=== PATIENT | female | born 1955 | race Caucasian/White ===

== ENCOUNTER 2017-02-10 11:53 | Emergency (ER) | payer OTHER ==
[~2017-02-10] VITALS: Ht 167.6 cm; Wt 85.2 kg
[~2017-02-10 11:53] MED LIST: CRANBERRY400 MG PO; GRALISE300 MG PO; K-DUR20 MEQ PO; MAGNESIUM OXID200 MG PO; SYNTHROID100 MCG PO; VALIUM5 MG PO; VITAMIN B-6250 MG PO
[2017-02-10 12:59] LABS: EOSINOPHIL (%) 2.1 % (0-5); EOSINOPHIL COUNT 0.2 K/uL (0-0.3); HEMATOCRIT 45.9 % (36.0-46.0); IMMATURE GRANULOCYTE (%) 0.4 % (0.0-0.7); LYMPHOCYTE COUNT 2.4 K/uL (1.0-2.8); MCH 30.8 PG (29.0-34.0); MCHC 32.9 G/DL (30.0-36.0); MCV 93.5 FL (83-99); MEAN PLAT.VOLUME 11.4 uM^3 (9.5-12.4); MONOCYTE (%) 8.3 % (3-12); MONOCYTE COUNT 0.6 K/uL (0-0.8); NEUTROPHIL (%) 55.1 % (45-76); PLATELET COUNT 213 K/uL (156-360); RBC DIS.WIDTH-SD 41.6 % (39-53); RED BLOOD COUNT 4.91 M/uL (3.80-5.20); WHITE BLOOD COUNT 7.2 K/uL (4.1-10.2)
[2017-02-10 13:15] LABS: CHLORIDE 107 mEq/L (99-109); POTASSIUM 4.1 mEq/L (3.7-5.4); SODIUM 140 mEq/L (136-147)
[2017-02-10 13:16] LABS: GLUCOSE 119 mg/dL (70-99)
[2017-02-10 13:18] LABS: ANION GAP 8 MEQ/L (2-14)
[2017-02-10 13:20] LABS: GFR ESTIMATE (CALCULATED) 53 mL/min/
[2017-02-10 13:21] LABS: UREA NITROGEN (BUN) 20 mg/dL (9-23)
[2017-02-10] MEDS ORDERED: ATARAX,VISTARIL25 MG PO (15:39)
[2017-02-10 15:56] VITALS: BP 131/68
== END 2017-02-10 15:57 | disposition home or self-care (01) ==
LOC: EME 11:53 → RME 11:53
PROVIDERS: Emergency Medicine
DX: R51 Headache (principal); E03.9 Hypothyroidism, unspecified
CPT/HCPCS: 70450; 80048; 84443; 85025; 87493; 93005; 99281; 99284

== ENCOUNTER 2017-02-15 23:29 | Emergency (ER) | payer OTHER ==
[~2017-02-15] VITALS: Ht 167.6 cm; Wt 81.8 kg
[~2017-02-15 23:29] MED LIST changes: +ATARAX,VISTARIL25 MG PO
[2017-02-16 01:14] LABS: HEMATOCRIT 45.8 % (36.0-46.0); MCH 31.1 PG (29.0-34.0); MCHC 33.4 G/DL (30.0-36.0); MCV 93.1 FL (83-99); MEAN PLAT.VOLUME 11.1 uM^3 (9.5-12.4); PLATELET COUNT 234 K/uL (156-360); RBC DIS.WIDTH-CV 12.2 % (11.8-14.6); RBC DIS.WIDTH-SD 42.1 % (39-53); RED BLOOD COUNT 4.92 M/uL (3.80-5.20); WHITE BLOOD COUNT 7.6 K/uL (4.1-10.2)
[2017-02-16 01:31] LABS: CHLORIDE 104 mEq/L (99-109); POTASSIUM 3.8 mEq/L (3.7-5.4)
[2017-02-16 01:32] LABS: SODIUM 139 mEq/L (136-147)
[2017-02-16 01:33] LABS: GLUCOSE 107 mg/dL (70-99)
[2017-02-16 01:35] LABS: ANION GAP 11 MEQ/L (2-14)
[2017-02-16 01:37] LABS: GFR ESTIMATE (CALCULATED) 48 mL/min/
[2017-02-16 01:38] LABS: UREA NITROGEN (BUN) 25 mg/dL (9-23)
[2017-02-16] MEDS ORDERED: MEDROL DOSEPAK4 MG PO (02:10)
[2017-02-16 02:56] VITALS: BP 131/70
[2017-02-16 03:03] LABS: ERTH.SED.RATE 27 MM/HR (0-30)
== END 2017-02-16 02:59 | disposition home or self-care (01) ==
LOC: EME 23:29 → EXP 23:29
PROVIDERS: Emergency Medicine
DX: M79.89 Other specified soft tissue disorders (principal); M25.472 Effusion, left ankle; M25.461 Effusion, right knee; M25.462 Effusion, left knee; E03.9 Hypothyroidism, unspecified
CPT/HCPCS: 73610; 80048; 83605; 85027; 85651; 87040; 99281; 99284; J1650; J7512

== ENCOUNTER 2017-02-16 09:04 | Emergency (ER) | payer OTHER ==
[~2017-02-16] VITALS: Ht 167.6 cm; Wt 84.3 kg
[~2017-02-16 09:04] MED LIST changes: +MEDROL DOSEPAK4 MG PO
[2017-02-16 11:05] VITALS: BP 112/72
== END 2017-02-16 11:06 | disposition home or self-care (01) ==
LOC: EME 09:04
DX: R60.0 Localized edema (principal); E78.5 Hyperlipidemia, unspecified; I10 Essential (primary) hypertension; K21.9 Gastro-esophageal reflux disease without esophagitis; E03.9 Hypothyroidism, unspecified
CPT/HCPCS: 93971; 99281; 99284

== ENCOUNTER → 2017-04-04 | Outpatient (CLI) | payer OTHER ==
[~2017-04-04] VITALS: Ht 167.6 cm; Wt 84.4 kg
[~2017-04-04] MED LIST changes: +FISH OIL300 MG PO; +GLUCOSAMINE &1 EAC1 PO; +IRON160 M1 PO; +MAGNESIUM 300300 MG PO; +NEXIUM40 MG PO; +PROBIOTIC1 EAC1 PO; +STRESS B-COMPL1 EACH PO; +SYNTHROID75 MCG PO; +VITAMIN D32000 UNI1 PO; +ZYRTEC10 M2 PO
== END | disposition home or self-care (01) ==
LOC: AMB 12:00
PROC: 0DBL8ZX Excision of Transverse Colon, Via Natural or Artificial Opening Endoscopic, Diagnostic (ICD-10-PCS; principal; 2017-04-04)
DX: K63.5 Polyp of colon (principal); R10.32 Left lower quadrant pain; I12.9 Hypertensive chronic kidney disease with stage 1 through stage 4 chronic kidney disease, or unspecified chronic kidney disease; N18.3 Chronic kidney disease, stage 3 (moderate); K21.9 Gastro-esophageal reflux disease without esophagitis; E03.9 Hypothyroidism, unspecified; M51.36 Other intervertebral disc degeneration, lumbar region; Z68.29 Body mass index [BMI] 29.0-29.9, adult; E66.3 Overweight; F41.0 Panic disorder [episodic paroxysmal anxiety]; Z79.899 Other long term (current) drug therapy; Z88.0 Allergy status to penicillin
CPT/HCPCS: 88305; J2250; J3010